=== PATIENT | female | born 1970 | race Caucasian/White ===

== ENCOUNTER 2019-05-16 10:32 | Outpatient (CLI) | payer MEDICAID, SELFPAY ==
--- NOTE | 2019-05-16 10:47 | XR_ITS ---
WS: [id number] LEFT KNEE: 3 VIEW(S) TECHNIQUE: AP, oblique(s) and lateral. HISTORY: LEFT KNEE JOINT PAIN COMPARISON: None available. No fracture or dislocation. No joint space narrowing or osteophytes. No joint effusion. No soft tissue abnormality. XR/XR knee LT 3V* [id number] IMPRESSION: Normal LEFT knee.
== END 2019-05-16 10:33 | disposition home or self-care (01) ==
LOC: RADWPI 10:35
PROVIDERS: Family Provider Internal Medicine; PCP Internal Medicine; Visit Provider Nurse Practitioner Family
DX: M25.562 Pain in left knee (principal)
CPT/HCPCS: 73562

== ENCOUNTER 2019-05-24 10:27 | Emergency (ER) | payer MEDICAID, SELFPAY ==
[2019-05-24 10:37] VITALS: BP 147/98; PULSE 72; RESP 16; TEMP 36.4; O2SAT 96; BMI 36.0
[2019-05-24 10:43] VITALS: RESP 16; O2SAT 97
--- NOTE | 2019-05-24 10:50 | ED_ITS ---
HPI - Extremity Problem General: Chief complaint: Extremity Injury, Lower Stated complaint: LEFT KNEE PAIN Time Seen by Provider: 05/24/19 10:39 History of Present Illness: HPI Narrative: Patient presents with chronic left knee pain been worsening. Did see her PCP last week he ordered x-ray x-ray results are available and show no bony problems. States knee hurts when she gets up hurts to move it at times is crutches periodically this pain is been going on for quite a while just worse last few days MD Complaint: extremity pain Onset (ago): month(s) Pain Consistency: intermittent Location: left and knee Severity scale (1-10): 5 Quality: aching Radiation: distal Relieving factors: immobilization Exacerbating factors: exertion Associated symptoms: Reports no associated symptoms; Deny chest pain, fever(s) or rash Review of Systems Const: Denies: fever, chills or body aches Eyes: Denies: change in vision or blurry vision ENMT: Denies: throat pain or nasal congestion Card: Denies: chest pain or shortness of breath on exertion Resp: Denies: shortness of breath, productive cough or non-productive cough GI: Denies: abdominal pain, nausea or vomiting Musc: Reports: joint pain (Left knee without swelling); Denies: extremity pain or joint swelling Skin/Breast: Denies: rash Neuro: Denies: headache Psych: Denies: anxiety or depression Alexys/Lymph: Denies: easy bruising PFSH ED PFSH: Social History Smoking and tobacco status: never smoked Physical Exam Const: COMMON NORMALS: no apparent distress, average body habitus and oriented x3 HENMT: COMMON NORMALS: normocephalic HEAD & SCALP: normal to inspection and normocephalic FACE & SINUS: normal facial exam Eye: COMMON NORMALS: conjunctivae normal GENERAL EYE: normal appearance of both eyes CONJUNCTIVA: Yes conjunctivae normal Neck/C-Spine: COMMON NORMALS: no JVD Chest: COMMONS NORMALS: inspection of chest normal Resp: COMMON NORMALS: normal respiratory effort and clear to auscultation bilaterally AUSCULTATION: clear to auscultation bilaterally Cardio: COMMON NORMALS: no JVD, regular rate and regular rhythm RATE: regular rate RHYTHM: regular rhythm GI: COMMON NORMALS: normal to inspection, nondistended, normoactive bowel sounds Extremity: COMMON NORMALS: normal to inspection and full ROM LEFT LOWER EXTREMITY: Yes knee joint (Has signs consistent with possible meniscus tear pain in the medial aspect meniscus line pain with hyperextension of the knee and the meniscus line) Neuro: COMMON NORMALS: oriented x3 Course Vital Signs: Vital signs: Vital Signs Temperature 97.5 F L 05/24/19 10:37 Pulse Rate 72 05/24/19 10:37 Respiratory Rate 16 05/24/19 10:43 Blood Pressure 147/98 05/24/19 10:37 Pulse Oximetry 97 05/24/19 10:43 Discharge Plan Discharge Patient Disposition: Home, Self-Care Clinical Impression: Knee pain, left Qualifiers: Chronicity: chronic Qualified Code(s): M25.562 - Pain in left knee Condition: Stable Prescriptions: New prednisone 10 mg tablet 10 mg PO DAILY Qty: 10 RF: 0 Discharge Orders: Discharge Order (Routine); Ordered 05/24/19 Ordered By: Lee Ward Referrals: TORRES GOMEZ DO [Primary Care Provider] - Barbra Bernard MD [Family Provider] - Discharge Diet: Advance as tolerated and Usual diet Discharge Activity: Increase activity as tolerated Patient Instructions: Knee Pain (ED) Activity Restrictions/Additional Instructions: Follow-up with medical provider as directed. Take medications as prescribed. Return to the ER or your medical provider if condition worsens. Please read and understand discharge instructions. If any questions ask please. Probable left meniscus tear. Follow-up with Valentin ELLIOTT for ordering of MRI. Coding Level of Care Code ED Dye Beck Reel Operator for Remi Joseph
[2019-05-24 10:58] VITALS: BP 127/96; PULSE 72; RESP 16; O2SAT 96
== END 2019-05-24 10:59 | disposition home or self-care (01) ==
LOC: ER 11:00
PROVIDERS: Emergency Provider Nurse Practitioner Family; Family Provider Internal Medicine; PCP Internal Medicine
DX: M25.562 Pain in left knee (principal)
CPT/HCPCS: 12345; 99282

== ENCOUNTER → 2019-06-17 10:06 | Outpatient (BNVA) | payer MEDICAID, SELFPAY | PROVIDERS: Family Provider Internal Medicine; PCP Internal Medicine; Referring Provider Nurse Practitioner Family; Visit Provider Orthopaedic Surgery | DX: M25.562 Pain in left knee (principal); M25.561 Pain in right knee | CPT/HCPCS: 73560; 73565 ==

== ENCOUNTER 2020-04-28 08:53 | Outpatient (CLI) | payer MEDICAID, SELFPAY ==
--- NOTE | 2020-04-28 08:58 | MM_ITS ---
WS: [id number] BILATERAL DIGITAL SCREENING MAMMOGRAPHY WITH CAD CLINICAL INFORMATION: SCREENING HISTORY: Screening mammogram. No current complaints. COMPARISON: TECHNIQUE: Bilateral CC and MLO views. FINDINGS: The breasts are composed of heterogeneous fibroglandular density tissue, which can limit the detectio n of small underlying mass lesions. Punctate and lucent center calcifications. Clustered calcificatio ns. Benign milk of calcium.No suspicious mass, asymmetry, calcifications, or architectural distortion . No evidence of malignancy. MM/[place] [id number] IMPRESSION: BI-RADS: 2-Benign FOLLOW UP: 1 Year Follow-up Recommend return to annual screening mammography.
== END 2020-04-28 08:54 | disposition home or self-care (01) ==
LOC: RADSHAW 08:55
PROVIDERS: PCP Nurse Practitioner Family; Visit Provider Nurse Practitioner Family
DX: Z12.31 Encounter for screening mammogram for malignant neoplasm of breast (principal)
CPT/HCPCS: 77067

== ENCOUNTER → 2020-09-23 11:07 | Outpatient (BNVA) | payer MEDICAID, SELFPAY | PROVIDERS: PCP Nurse Practitioner Family; Visit Provider Nurse Practitioner Family | DX: R05 Cough (principal) | CPT/HCPCS: 71046 ==

== ENCOUNTER 2020-09-24 12:48 | Outpatient (CLI) | payer MEDICAID, SELFPAY ==
--- NOTE | 2020-09-24 | CT_ITS ---
WS: [id number] CTA scan of the chest with IV contrast. Additional two-dimensional coronal and sagittal reconstructio n and MIP images was performed. 09/24/2020 Clinical Data: SOB/CHEST PAIN Comparison: CTA chest, 03/24/2014 DLP: 727.[address] scans at [facility] use at least one of these dose optimization techniques: automat ed exposure control; mA and/or kV adjustment per patient size (includes targeted exams where dose is matched to clinical indication); or iterative reconstruction. Findings: The central pulmonary arteries and peripheral pulmonary arteries fill normally with no evidence of in traluminal filling defects. No pulmonary embolic disease is noted. No nodules, masses or effusions are seen. The heart size is normal with no pericardial effusion. No p neumonia or pneumothorax is seen. The pulmonary vascularity is normal. The pulmonary arterial system and thoracic aorta demonstrate no abnormalities or dilatations. There is no axillary or significant m ediastinal adenopathy. The thyroid gland shows normal enhancement. The trachea bifurcates into the br onchi. The upper abdomen shows no abnormalities. The visualized liver, spleen, pancreas, gallbladder, adrena l glands and superior poles of the kidneys are not remarkable. The bones of the thoracic and upper lumbar spine are not remarkable. CT/CT angio chest PE protcl [id number] Impression: 1. Negative CTA of the chest with no evidence of pulmonary embolus. 2. Negative for acute cardiopulmonary disease.
[2020-09-24] MEDS: iohexol 350 mg/mL 100 mL Btl IV (13:14)
== END 2020-09-24 12:49 | disposition home or self-care (01) ==
PROVIDERS: PCP Nurse Practitioner Family; Visit Provider Nurse Practitioner Family
DX: Z86.711 Personal history of pulmonary embolism (principal); R06.00 Dyspnea, unspecified; R06.02 Shortness of breath; R07.9 Chest pain, unspecified
CPT/HCPCS: 71275; Q9967

== ENCOUNTER → 2020-10-12 13:59 | Outpatient (BNVA) | payer MEDICAID, SELFPAY | PROVIDERS: PCP Nurse Practitioner Family; Visit Provider Nurse Practitioner Family | DX: R06.00 Dyspnea, unspecified (principal) | CPT/HCPCS: 71046 ==

== ENCOUNTER 2020-10-13 20:00 | Outpatient (CLI) | payer MEDICAID, SELFPAY | END 2020-10-13 20:01 | disposition home or self-care (01) | LOC: SLEEP 10-14 08:46 | PROVIDERS: PCP Nurse Practitioner Family; Visit Provider Nurse Practitioner Family | DX: G47.33 Obstructive sleep apnea (adult) (pediatric) (principal) | CPT/HCPCS: 95810 ==

== ENCOUNTER 2020-12-03 11:42 | Outpatient (CLI) | payer MEDICAID, SELFPAY ==
[2020-12-03 12:05] VITALS: BMI 38.6
--- NOTE | 2020-12-03 12:05 | ECG_ITS ---
[facility] Test Date: 2020-12-03 Pat Name: Michelle Cui Department: Room: Gender: Female Firewall Administrator: : 1970 Requested By: Marilee Heath Order Number: [id number] Dung MD: AMBER SCHROEDER Interpretive Statements NAME OF STUDY: TREADMILL STRESS TEST INDICATION: Chest Pain, EXERCISE DATA: The patient was exercised by Trav protocol. Baseline heart rate was 86 beats per minute. Baseline blood pressure was 147/86 millimeters of mercury. Target heart rate was 169 beats per minute. Maximum heart rate achieved was 150, which was 88 % of the target heart rate. Maximum blood pressure was 236/80 millimeters of mercury. Total exercise time was 5 minutes 59 sec. Maximum METs achieved was 7.0, maximum VO2 was 24.5. The reason for ending the test was maximum effort achieved. The patient complained of shortness of breath during the stress test, which then resolved at the end of the test. ELECTROCARDIOGRAM: BASELINE: Sinus rhythm, normal axis, no significant ST-T changes at the baseline noted. EXERCISE: At the peak exercise level, no significant ST-T changes suggestive of ischemia noted. RECOVERY: During the recovery period, heart rate dropped appropriately. No significant ST-T changes in the recovery suggestive of ischemia noted. CONCLUSION: 1. Exercise capacity fair. 2. Heart rate response was appropriate. 3. Blood pressure response was hypertensive. 4. Symptoms not suggestive of ischemia. 5. Electrocardiogram portion of the stress test was not suggestive of ischemia. 6. Nuclear scan will be documented separately. Electronically Signed On 12-24-2020 18:53:43 TRANSPORT SPECIALIST by AMBER SCHROEDER [id number]
[2020-12-03 12:51] VITALS: BP 117/78; PULSE 92
== END 2020-12-03 11:43 | disposition home or self-care (01) ==
LOC: CDL 11:44
PROVIDERS: PCP Nurse Practitioner Family; Visit Provider Nurse Practitioner Family
DX: R07.9 Chest pain, unspecified (principal); R06.02 Shortness of breath
CPT/HCPCS: 93017

== ENCOUNTER 2021-02-03 10:55 | Outpatient (CLI) | payer MEDICAID, SELFPAY ==
[2021-02-03 13:10] VITALS: BP 146/92; PULSE 100; RESP 20; TEMP 37.2; O2SAT 96; BMI 37.8
[2021-02-03 13:45] VITALS: BP 137/90; PULSE 94; RESP 16; TEMP 37; O2SAT 96
[2021-02-03 14:48] VITALS: BP 128/83; PULSE 88; RESP 16; TEMP 36.6; O2SAT 97
== END 2021-02-03 10:56 | disposition home or self-care (01) ==
LOC: OPS 10:57
PROVIDERS: PCP Nurse Practitioner Family; Visit Provider Nurse Practitioner Family
DX: U07.1 COVID-19 (principal)
CPT/HCPCS: 96365

== ENCOUNTER 2021-03-04 08:48 | Outpatient (CLI) | payer MEDICAID, SELFPAY ==
--- NOTE | 2021-03-04 09:17 | USCV_ITS ---
Michelle Cui Age: 50 Gender: F : 1970 Exam Date: 03/04/2021 09:22 Ordering Phys: Marilee Heath PACKAGING TECH Technologist: LYNN Exam Location: [facility] [place] Indication: LEG PAIN / TINGLING HISTORY: LEG PAIN / TINGLING PROCEDURES: The venous duplex Doppler examination of both lower extremities was performed in the standard fashion. The following venous structures were evaluated: common femoral vein, profunda vein, proximal portion of the greater saphenous vein, superficial femoral vein, and the popliteal vein. In addition, the posterior tibial and peroneal trunk were evaluated. FINDINGS: Normal 2-D Doppler and augmentation and compressibility throughout the lower extremity venous structures. Additional imaging through the proximal calf veins also reveals no thrombus. Limited evaluation of the greater saphenous vein is patent with no thrombus. CONCLUSIONS No DVT bilateral lower extremities. Dr. Umm Machado DO (Electronically Signed) Final Date: 04 March 2021 10:40 S
== END 2021-03-04 08:49 | disposition home or self-care (01) ==
LOC: RAD 08:52
PROVIDERS: PCP Nurse Practitioner Family; Visit Provider Nurse Practitioner Family
DX: M79.604 Pain in right leg (principal); M79.605 Pain in left leg; R20.2 Paresthesia of skin; D68.51 Activated protein C resistance
CPT/HCPCS: 93970

== ENCOUNTER 2021-07-02 10:06 | Emergency (ER) | payer MEDICAID, SELFPAY ==
[2021-07-02 10:10] VITALS: BP 161/81; PULSE 85; RESP 14; TEMP 36.7; O2SAT 97; BMI 38.6
--- NOTE | 2021-07-02 10:26 | CTR_ITS ---
PROCEDURE INFORMATION: Exam: CT Head Without Contrast Exam date and time: 07/02/2021 11:00 AM Age: 51 years old Clinical indication: Other: Left eye drooping and numbness all over; Additional info: Symptoms of acute stroke TECHNIQUE: Imaging protocol: Computed tomography of the head without contrast. Radiation optimization: All CT scans at this facility use at least one of these dose optimization techniques: automated exposure control; mA and/or kV adjustment per patient size (includes targeted exams where dose is matched to clinical indication); or iterative reconstruction. COMPARISON: No relevant prior studies available. RADIATION DOSE METRICS: Total DLP (mGy-cm): 931.21 FINDINGS: Brain: No intracranial hemorrhage, edema or other acute abnormalities are seen in the brain. There is mild patchy decreased white matter density consistent with chronic small vessel white matter ischemia. There is no mass effect or midline shift. Cerebral ventricles: No ventriculomegaly. Paranasal sinuses: Visualized sinuses are unremarkable. No fluid levels. Mastoid air cells: Visualized mastoid air cells are well aerated. Bones/joints: Unremarkable. No acute fracture. Soft tissues: Unremarkable. CT/CT head wo con* [id number] IMPRESSION: No acute intracranial abnormality.
--- NOTE | 2021-07-02 10:26 | ECG_ITS ---
[facility] Test Date: 2021-07-02 Pat Name: Michelle Cui Department: Room: Gender: Female Hr Receptionist: : 1970 Requested By: Kieran Garcia Order Number: [id number] Dung MD: Andrew Randhawa M.D. Measurements Intervals [place] Rate: 71 P: 6 KS: 162 QRS: -4 QRSD: 86 T: 71 QT: 374 QTc: 409 Interpretive Statements SINUS RHYTHM NONSPECIFIC T-WAVE ABNORMALITY Compared to ECG 03/24/2014 17:15:01 Sinus tachycardia no longer present T-wave abnormality still present Electronically Signed On 07-03-2021 20:31:33 CDT by Andrew Randhawa M.D. [id number]
[2021-07-02] MEDS: ketorolac 30 mg/mL INJ 15 MG IVP (10:47)
[2021-07-02] MEDS: sodium chloride 0.9% 1,000 ML 999 ML IV (10:47)
[2021-07-02 10:48] LABS: Eosinophils # 0.3 10^3/uL (0.0-0.8); Eosinophils % 2.8 %; Neutrophils % 66.2 %; Nucleated Red Blood Cells % 0 %; Red Blood Count 4.89 10^6/uL (4.1-5.3); Red Cell Distribution Width 12.2 % (12.1-15.1)
[2021-07-02 11:01] LABS: Basophils # 0.1 10^3/uL (0.0-0.1); Basophils % 0.5 %; Hematocrit 43.7 % (37.0-47.0); Hemoglobin 15.1 g/dL (11.5-15.3); Lymphocytes # 2.3 10^3/uL (0.8-4.8); Lymphocytes % 22.6 %; Mean Corpuscular HGB Conc 34.6 g/dL (30.0-36.0); Mean Corpuscular Hemoglobin 30.9 pg (28.0-34.0); Mean Corpuscular Volume 89.4 fl (81-99); Mean Platelet Volume 9.1 fL (7.4-10.4); Monocytes # 0.7 10^3/uL (0.2-0.9); Monocytes % 7.4 %; Neutrophils # 6.64 10^3/uL (1.8-7.7); Platelet Count 397 10^3/cmm (130-400)
[2021-07-02 11:01] LABS: Glucose Point of Care 95 mg/dL (70-110)
[2021-07-02 11:05] LABS: INR 0.91 (0.8-1.2)
[2021-07-02 11:06] LABS: Partial Thromboplastin Time 28.8 SECONDS (23.9-36.7)
[2021-07-02 11:11] LABS: Alanine Aminotransferase 20 U/L (0-33); Albumin Level 4.5 g/dL (3.5-5.2); Alkaline Phosphatase 77 IU/L (35-105); Anion Gap 16.7 (5-19); Aspartate Amino Transferase 17 U/L (0-32); Blood Urea Nitrogen 10 mg/dL (6-20); Calcium 8.9 mg/dL (8.5-10.5); Carbon Dioxide 23 mmol/L (22-29); Chloride 103 mmol/L (98-107); Globulin 2.5 g/dL (1.3-4.6); Glomerular Filtration Rate 129.6 mL/min (90-130); Glucose 94 mg/dL (65-115); Osmolality Calculated 287 mOsm/kg (285-295); Potassium 3.7 mmol/L (3.5-5.1); Sodium 139 mmol/L (136-145); Total Bilirubin 0.3 mg/dL (0.15-1.2)
--- NOTE | 2021-07-02 11:19 | W.ED.NEUROSD ---
HPI - Neuro Symptoms/Deficit General: Chief Complaint: Neuro Symptoms/Deficit Stated Complaint: facial droop; numbness/tingling Time Seen by Provider: 07/02/21 10:19 History of Present Illness: Patient comes in with numbness, facial droop, and headache. States that she did not feel well then developed numbness all over, states that she is then developed some drooping of her right mouth, then started to have a headache. States that the numbness was all over her whole body. She currently still has the headache. Associated symptoms: Reports headache(s); Deny chest pain, nausea or vomiting Review of Systems Const: Denies: fever(s) or body aches Eyes: Denies: change in vision or blurry vision ENMT: Denies: throat pain or odynophagia Card: Denies: chest pain or palpitations Resp: Denies: dyspnea or productive cough GI: Denies: abdominal pain, nausea or vomiting : Denies: flank pain or dysuria Musc: Denies: neck pain or back pain Skin/Breast: Denies: rash or pruritus Neuro: Reports: headache(s) and numbness in extremities Psych: Denies: anxiety or change in appetite Endo: Denies: polyuria or excessive sweating PFSH ED PFSH: Social History Smoking and tobacco status: never smoked Physical Exam Const: COMMON NORMALS: no acute distress, patient oriented x3, healthy appearing and alert HENMT: COMMON NORMALS: normocephalic and atraumatic HEAD & SCALP: normocephalic and atraumatic Eye: COMMON NORMALS: Equal, round and reactive pupils present and EOMs intact bilaterally PUPIL: Yes Equal, round and reactive pupils present Neck/C-Spine: COMMON NORMALS: full ROM and supple Resp: COMMON NORMALS: normal respiratory effort, No retractions and No use of accessory muscles Cardio: COMMON NORMALS: regular rate and regular rhythm RATE: regular rate RHYTHM: regular rhythm GI: COMMON NORMALS: Normal to inspection, nondistended, normoactive bowel sounds present, Soft to palpation and non-tender PALPATION: Yes Soft to palpation Back/Pelvis: COMMON NORMALS: thoracic and lumbar spine normal to inspection and no thoracic nor lumbar tenderness Extremity: COMMON NORMALS: normal to inspection and full ROM Neuro: COMMON NORMALS: patient oriented x3 SENSORIUM/ORIENTATION: Yes alert OTHER: Mild drooping of the right side of the mouth, grossly normal neuro exam otherwise Psych: COMMON NORMALS: mental status grossly normal and cooperative Skin: COMMON NORMALS: no rashes or lesions noted and no wounds GENERAL SKIN EXAM: no rashes or lesions noted Course Vital Signs: Vital signs: Vital Signs Temperature 98.0 F 07/02/21 10:10 Pulse Rate 85 07/02/21 10:10 Respiratory Rate 14 07/02/21 10:10 Blood Pressure 161/81 07/02/21 10:10 Pulse Oximetry 97 07/02/21 10:10 MDM - Neuro Symptoms/Deficit Medical Decision Making ess all over, states that she is then developed some drooping of her right mouth, then started to have a headache. States that the numbness was all over her whole body. She currently still has the headache. On physical exam she has mild drooping of the right side of her mouth. Her neuro exam is otherwise grossly normal with no lateralizing symptoms. Strength is 5 out of 5 in all 4 extremities, sensation is intact throughout. Will check labs, CT, treat headache, and reassess. On reassessment I talked to results. She states her headache is gone and her symptoms are resolved. Will discharge home at this time with precautions return for worsening or changing symptoms. Lab Data : 07/02/21 10:30 07/02/21 10:[address] 07/02/21 10:26 IMPRESSION: No acute intracranial abnormality. Laboratory Results WBC 10.0 10^3/uL (4.0-10.0) 07/02/21 10:30 RBC 4.89 10^6/uL (4.1-5.3) 07/02/21 10:30 Hgb 15.1 g/dL (11.5-15.3) 07/02/21 10:30 Hct 43.7 % (37.0-47.0) 07/02/21 10:30 MCV 89.4 fl (81-99) 07/02/21 10:30 MCH 30.9 pg (28.0-34.0) 07/02/21 10:30 MCHC 34.6 g/dL (30.0-36.0) 07/02/21 10:30 RDW 12.2 % (12.1-15.1) 07/02/21 10:30 Plt Count 397 10^3/cmm (130-400) 07/02/21 10:30 MPV 9.1 fL (7.4-10.4) 07/02/21 10:30 Neut % (Auto) 66.2 % 07/02/21 10:30 Lymph % (Auto) 22.6 % 07/02/21 10:30 [place] % (Auto) 7.4 % 07/02/21 10:30 Eos % (Auto) 2.8 % 07/02/21 10:30 Baso % (Auto) 0.5 % 07/02/21 10:30 Neut # (Auto) 6.64 10^3/uL (1.8-7.7) 07/02/21 10:30 Lymph # (Auto) 2.3 10^3/uL (0.8-4.8) 07/02/21 10:30 [place]ie # (Auto) 0.7 10^3/uL (0.2-0.9) 07/02/21 10:30 Eos # (Auto) 0.3 10^3/uL (0.0-0.8) 07/02/21 10:30 Baso # (Auto) 0.1 10^3/uL (0.0-0.1) 07/02/21 10:30 Nucleated RBC % (auto) 0 % 07/02/21 10:30 Nucleated RBCs # 0.0 /100WBC 07/02/21 10:30 PT 12.50 SECONDS (12.1-14.9) 07/02/21 10:30 INR 0.91 (0.8-1.2) 07/02/21 10:30 APTT 28.8 SECONDS (23.9-36.7) 07/02/21 10:30 Sodium 139 mmol/L (136-145) 07/02/21 10:30 Potassium 3.7 mmol/L (3.5-5.1) 07/02/21 10:30 Chloride 103 mmol/L (98-107) 07/02/21 10:30 Carbon Dioxide 23 mmol/L (22-29) 07/02/21 10:30 Anion Gap 16.7 (5-19) 07/02/21 10:30 BUN 10 mg/dL (6-20) 07/02/21 10:30 Creatinine 0.5 mg/dL (0.5-0.9) 07/02/21 10:30 GFR Calculation 129.6 mL/min (90-130) 07/02/21 10:30 Glucose 94 mg/dL (65-115) 07/02/21 10:30 POC Glucose 95 mg/dL (70-110) 07/02/21 10:45 Calculated Osmolality 287 mOsm/kg (285-295) 07/02/21 10:30 Calcium 8.9 mg/dL (8.5-10.5) 07/02/21 10:30 Total Bilirubin 0.3 mg/dL (0.15-1.2) 07/02/21 10:30 AST 17 U/L (0-32) 07/02/21 10:30 ALT 20 U/L (0-33) 07/02/21 10:30 Alkaline Phosphatase 77 IU/L (35-105) 07/02/21 10:30 Total Protein 7.0 g/dL (6.6-8.7) 07/02/21 10:30 Albumin 4.5 g/dL (3.5-5.2) 07/02/21 10:30 Globulin 2.5 g/dL (1.3-4.6) 07/02/21 10:30 Urine Color Yellow (Yellow) 07/02/21 11:50 Urine Appearance Clear (CLEAR) 07/02/21 11:50 Urine pH 7 (5-7) 07/02/21 11:50 Ur Specific [place] 1.010 (1.005-1.030) 07/02/21 11:50 Urine Protein Neg (Negative) 07/02/21 11:50 Urine Glucose (UA) Norm (Normal) 07/02/21 11:50 Urine Ketones Negative (Negative) 07/02/21 11:50 Urine Blood Neg (Negative) 07/02/21 11:50 Urine Nitrate Negative (Negative) 07/02/21 11:50 Urine Bilirubin Neg (Negative) 07/02/21 11:50 Urine Urobilinogen Norm mg/dL (Negative) 07/02/21 11:50 Ur Leukocyte Esterase 1+ (Negative) H 07/02/21 11:50 Urine RBC None /hpf (0-2) 07/02/21 11:50 Urine WBC 5-10 /hpf (0-5) H 07/02/21 11:50 Ur Squamous Epith Cells 0-4 /hpf (0-5) H 07/02/21 11:50 Amorphous Sediment Not Reportable 07/02/21 11:50 Urine Bacteria Trace /hpf (NONE) 07/02/21 11:50 Urine Mucus 1+ /hpf 07/02/21 11:50 Urine Opiates Screen Negative ng/mL (Negative) 07/02/21 11:50 Ur Barbiturates Screen Negative ng/mL (Negative) 07/02/21 11:50 Ur Phencyclidine Scrn Negative ng/mL (Negative) 07/02/21 11:50 Ur Amphetamines Screen Negative ng/mL (Negative) 07/02/21 11:50 U Benzodiazepines Scrn Negative ng/mL (Negative) 07/02/21 11:50 Urine Cocaine Screen Negative ng/mL (Negative) 07/02/21 11:50 U Marijuana (THC) Screen Negative ng/mL (Negative) 07/02/21 11:50 Discharge Plan Discharge Patient Disposition: Home Clinical Impression: Headache Condition: Stable Prescriptions: No Action verapamil 120 mg capsule,ext rel. pellets 24 hr 120 mg PO DAILY 0RF venlafaxine 75 mg tablet 75 mg PO DAILY 0RF Tylenol 325 mg Capsule 325 mg PO QID PRN (Reason: Pain, Mild) 0RF prednisone 10 mg tablet 10 mg PO DAILY Qty: 10 0RF Discharge Orders: Discharge ED (Routine); Ordered 07/02/21 Ordered By: Kieran Garcia Referrals: Marilee Heath FNP [Primary Care Provider] - Coding Level of Care Code ED Grease Man for Chg Fwd Exam Comprehensive
[2021-07-02 12:17] LABS: Add Urine Microscopic? YES; Bilirubin Urine Neg (Negative); Blood Urine Neg (Negative); Glucose Urine UA Norm (Normal); Ketones Urine Negative (Negative); Leukocyte Esterase Urine 1+ (Negative); Nitrate Urine Negative (Negative); Protein Urine Neg (Negative); Urine Appearance Clear (CLEAR); Urine Color Yellow (Yellow); Urobilinogen Urine Norm (Negative); pH Urine 7 (5-7)
[2021-07-02 12:18] LABS: Amphetamines Screen Urine Negative (Negative); Bacteria Urine TRACE /hpf; Barbiturates Screen Urine Negative (Negative); Benzodiazepines Screen Urine Negative (Negative); Cocaine Screen Urine Negative (Negative); Mucus Urine 1+ /hpf; Opiate Screen Urine Negative (Negative); PCP Screen Urine Negative (Negative); Squamous Epithelial Cell Urine 0-4 /hpf (0-5); THC Screen Urine Negative (Negative)
[2021-07-02 12:19] LABS: Add Urine Culture? No
== END 2021-07-02 12:59 | disposition home or self-care (01) ==
PROVIDERS: Emergency Provider Emergency Medicine; PCP Nurse Practitioner Family
DX: R51.9 Headache, unspecified (principal)
CPT/HCPCS: 36416; 70450; 80053; 80306; 81001; 82962; 85025; 85610; 85730; 93005; 96374; 99284; J1885; J7030

== ENCOUNTER → 2021-08-09 10:33 | Outpatient (BNVA) | payer MEDICAID, SELFPAY | PROVIDERS: PCP Nurse Practitioner Family; Visit Provider Surgery | DX: Z12.11 Encounter for screening for malignant neoplasm of colon (principal) | CPT/HCPCS: 99024 ==

== ENCOUNTER 2021-08-26 10:40 | Outpatient (CLI) | payer MEDICAID, SELFPAY ==
--- NOTE | 2021-08-26 10:43 | MM_ITS ---
WS: [id number] BILATERAL SCREENING DIGITAL BREAST TOMOSYNTHESIS MAMMOGRAM WITH CAD HISTORY: SCREENING COMPARISON: 04/28/2020, 11/22/2018, 01/03/2016 Bilateral CC and MLO views with tomosynthesis and synthetic mammography submitted. Computer aided det ection analyzed. Breast composition: The breasts are extremely dense, which lowers the sensitivity of mammography. No suspicious masses, microcalcifications or architectural distortion. Diffuse bilateral scattered calci fications within each breast with mild progression over the past several years. There is no focal adriana uping of calcification that has changed or appears more significant than another. There is no distort ion. The very dense fibroglandular tissue makes evaluation for subtle changes difficult Note: Very dense fibroglandular tissue and numerous scattered calcifications. Self breast exams will be very important in this patient to evaluate for any change in thickening or nodularity. MM/[place] [id number] IMPRESSION: BI-RADS: 2-Benign FOLLOW UP: 1 Year Follow-up
== END 2021-08-26 10:41 | disposition home or self-care (01) ==
LOC: RAD 10:41
PROVIDERS: PCP Nurse Practitioner Family; Visit Provider Family Medicine
DX: Z12.31 Encounter for screening mammogram for malignant neoplasm of breast (principal)
CPT/HCPCS: 77063; 77067

== ENCOUNTER 2022-01-10 06:44 | Day surgery (SDC) | payer MEDICAID, SELFPAY ==
[2022-01-06 11:34] VITALS: BMI 37.8
--- NOTE | 2022-01-10 06:48 | W.PM.OPSFHP ---
Same Day Surgery H&P Indication for Procedure/HPI DATE OF PROCEDURE: January 10, 2022 CHIEF COMPLAINT/INDICATIONFOR SURGICAL PROCEDURE: Screening colonoscopy PREOP DIAGNOSIS: Screening colonoscopy PLANNED PROCEDURE: Operation Date: 01/10/22 08:00 Proposed Procedures p Colonoscopy [id number],Z12.11(Not Applicable) - Adalid Tamayo MD This is a pleasant 52 years old female patient with a history of no colon cancer or polyps, never had a colonoscopy before, patient comes today for screening colonoscopy. No bleeding per rectum. ROS All systems have been reviewed negative except as for the above or per problem list. Medications/Allergies* Home Medications Medication Instructions Recorded Confirmed Type venlafaxine 75 mg tablet 75 mg PO DAILY 06/17/19 01/06/22 History verapamil 120 mg 24 hr 120 mg PO DAILY 06/17/19 01/06/22 History capsule,extended release omeprazole 20 mg capsule,delayed 20 mg PO ONCE 08/09/21 01/06/22 History release Allergies/Adverse Reactions Allergy/AdvReac Type Severity Reaction Status Date / Time propranolol [From Inderal LA] Allergy Unknown Verified 01/10/22 08:15 Pertinent History/Comorbid Conditions* Social History Smoking and tobacco status: never smoked Pertinent Exam Findings alert, oriented x 3, clear to auscultation bilaterally, regular rate & rhythm and procedure specific exam findings (Abdominal exam nontender nondistended soft lower midline scar) Recommendations Surgery/Procedure today (Colonoscopy with possible biopsy) Other Plans: Plan of care; After thorough history and physical examination and reviewing the chart, plan to perform screening colonoscopy. I discussed with the patient in details the risks,benefits,alternatives and indications.The risk of aspiration, bleeding, soft tissue injury, perforation of the colon ,missed lesions and other potential concomitant complications were explained to the patient in details,also the potential need for Laproscoy/Laparotomy to repair any related complications including but not limited to colectomy and or Closotomy.The patient understood this well and did agree to proceed. Rationale was carefully and clearly discussed with the patient.Appropriate informed consent have been reviewed and signed All questions have been answered and all concerns have been addressed to patient's satisfaction. Verbal and written Instructions were given to the patient for colonoscopy prep Coding Level of Care Code Acute Roll Icer for smita Joseph
[2022-01-10 06:56] VITALS: BP 154/92; PULSE 84; RESP 18; TEMP 36.3; O2SAT 97
[2022-01-10 07:01] LABS: OR HCG Qualitative Urine Negative (Negative)
[2022-01-10] MEDS: sodium chloride 0.9% 1,000 ML 30 ML IV (07:05)
--- NOTE | 2022-01-10 07:58 | ANES.PREANE2 ---
Pre-Anesthetic Assessment Height/Weight: Height 1.63 m Weight 99.79 kg Temp Pulse Resp BP Pulse Ox O2 Del Method 97.3 F L 84 18 154/92 97 01/10/22 06:56 01/10/22 06:56 01/10/22 06:56 01/10/22 06:56 01/10/22 06:56 01/10/22 06:56 Preop Diagnosis: Screening colonoscopy Operation Date: 01/10/22 08:00 Proposed Procedures p Colonoscopy 31594,Z12.11(Not Applicable) - Adalid Tamayo MD Familial anesthetic complications: none Was Beta Michelle taken within 24 hours: N/A Was Clonidine taken within 24 hours: N/A Last intake: Intake Last Liquid Date 01/09/22 Last Liquid Time 19:00 Last Solid Date 01/08/22 Last Solid Time 18:00 Social No alcohol and No tobacco Exam alert, oriented x 3 and regular rate & rhythm Airway Submandibular: within normal limits Cervical ROM: within normal limits Mallampati: Class II Dentition: chipped CV/HEM Hypertension GI Gastroesophageal Reflux Disease Metabolic Morbid Obesity Neuropsych Anxiety and Depression Anesthetic Plan ASA status: 3 Anesthesia: MAC Medications/Allergies Home Medications Medication Instructions Recorded Confirmed Last Taken Type venlafaxine 75 mg tablet 75 mg PO DAILY 06/17/19 01/06/22 01/09/22 History verapamil 120 mg 24 hr 120 mg PO DAILY 06/17/19 01/06/22 01/09/22 History capsule,extended release omeprazole 20 mg capsule,delayed 20 mg PO ONCE 08/09/21 01/06/22 01/09/22 History release Allergies Allergy/AdvReac Type Severity Reaction Status Date / Time propranolol [From Inderal LA] Allergy Unknown Verified 01/06/22 11:31 Current Medications Generic Name Dose Route Start Last Admin Trade Name Freq PRN Reason Stop Dose Admin Sodium Chloride 1,000 mls @ 30 mls/hr 01/10/22 07:00 01/10/22 07:05 Sodium Chloride 0.9% IV 01/11/22 06:59 30 mls/hr .Q24H TIN Administration PFSH Anesthesia Social History Smoking and tobacco status: never smoked Data Anesthesia Cardiac Studies: No Data to Display
[2022-01-10 08:46] VITALS: BP 136/99; PULSE 81; RESP 18; TEMP 36.1; O2SAT 95
[2022-01-10 09:03] VITALS: BP 129/92; PULSE 84; RESP 18; O2SAT 99
--- NOTE | 2022-01-10 16:30 | ANE.PACU2 ---
Inpatient post-anesthesia follow up: Airway intact: Yes Vital signs: Temperature 97.0 F Pulse Rate 84 Respiratory Rate 18 Blood Pressure 129/92 Pulse Oximetry 99 Oxygen Delivery Me thod Room Air Oxygen Flow Rate Fraction of Inspir ed Oxygen Hydration adequate: Yes Nausea and vomiting: No Pain level: 2 Mental status: Baseline
== END 2022-01-10 09:09 | disposition home or self-care (01) ==
PROVIDERS: Anesthesiology; PCP Nurse Practitioner Family; Visit Provider Surgery
PROC: 0DJD8ZZ Inspection of Lower Intestinal Tract, Via Natural or Artificial Opening Endoscopic (ICD-10-PCS; CPT 45378; principal; 2022-01-10 08:00)
DX: Z12.11 Encounter for screening for malignant neoplasm of colon (principal); K57.30 Diverticulosis of large intestine without perforation or abscess without bleeding; I10 Essential (primary) hypertension; K21.9 Gastro-esophageal reflux disease without esophagitis; E66.01 Morbid (severe) obesity due to excess calories; Z68.37 Body mass index [BMI] 37.0-37.9, adult
CPT/HCPCS: 45378; 81025; 84703; J2704; J7030

== ENCOUNTER → 2022-03-09 10:02 | Outpatient (BNVA) | payer MEDICAID, SELFPAY | PROVIDERS: PCP Nurse Practitioner Family; Visit Provider Nurse Practitioner Women's Health | DX: N93.8 Other specified abnormal uterine and vaginal bleeding (principal) | CPT/HCPCS: 76830 ==

== ENCOUNTER → 2022-03-14 14:30 | Outpatient (BNVA) | payer MEDICAID, SELFPAY | PROVIDERS: PCP Nurse Practitioner Family; Visit Provider Nurse Practitioner Women's Health | DX: Z01.419 Encounter for gynecological examination (general) (routine) without abnormal findings (principal); N95.0 Postmenopausal bleeding | CPT/HCPCS: 87624; 88305 ==

== ENCOUNTER 2022-06-06 09:07 | Day surgery (SDC) | payer MEDICAID, SELFPAY ==
[2022-06-05 11:26] VITALS: BMI 38.4
[2022-06-06] VITALS (9 sets, daily range): BP systolic 139–186; BP diastolic 60–105; PULSE 76–98; RESP 14–18; TEMP 36.1–36.7; O2SAT 95–100
[2022-06-06 09:22] LABS: OR HCG Qualitative Urine Negative (Negative)
--- NOTE | 2022-06-06 09:36 | W.PM.OPSUD ---
Surgery/Procedure H&P Update DATE OF PROCEDURE: June 06, 2022 DATE H&P PERFORMED: 06/01/22 H&P UPDATE INFORMATION: I have reviewed H&P completed within last 30 days, I have examined patient prior to procedure and No changes to prior documentation PREOP DIAGNOSIS: AUB, thickened endometrium PLANNED PROCEDURE: Operation Date: 06/06/22 13:10 Proposed Procedures p Hysteroscopy, dilation and curettage with Myosure [id number], N93.9,R93.89(Not Applicable) - Eri Patel MD s Dilation And Curettage (D&C)(Not Applicable) - Eri Patel MD Related Problem List Diagnoses (1) Abnormal uterine bleeding (AUB): (2) Thickened endometrium:
[2022-06-06] MEDS: sodium chloride 0.9% 1,000 ML 30 ML IV (09:54)
--- NOTE | 2022-06-06 10:03 | ANES.PREANE2 ---
Pre-Anesthetic Assessment Height/Weight: Height 1.63 m Weight 101.605 kg Temp Pulse Resp BP Pulse Ox O2 Del Method 98.0 F 82 18 166/83 96 Room Air 06/06/22 09:24 06/06/22 09:24 06/06/22 09:24 06/06/22 09:24 06/06/22 09:24 06/06/22 09:25 Preop Diagnosis: AUB, thickened endometrium Operation Date: 06/06/22 13:10 Proposed Procedures p Hysteroscopy, dilation and curettage with Myosure [id number], N93.9,R93.89(Not Applicable) - Eri Patel MD s Dilation And Curettage (D&C)(Not Applicable) - Eri Patel MD Familial anesthetic complications: None Was Beta Michelle taken within 24 hours: N/A Was Clonidine taken within 24 hours: N/A Last intake: Intake Last Liquid Date 06/05/22 Last Liquid Time 18:00 Last Solid Date 06/05/22 Last Solid Time 18:00 Social No alcohol and No tobacco Exam alert, oriented x 3, clear to auscultation bilaterally and regular rate & rhythm Airway Mallampati: Class II Dentition: chipped GI Gastroesophageal Reflux Disease Metabolic Morbid Obesity Anesthetic Plan ASA status: 2 Anesthesia: General Risk of > 500 ml blood loss (7ml/kg in children): No Medications/Allergies Home Medications Medication Instructions Recorded Confirmed Last Taken Type venlafaxine 75 mg tablet 75 mg PO DAILY 06/17/19 06/05/22 06/05/22 History verapamil 120 mg 24 hr 120 mg PO DAILY 06/17/19 06/05/22 06/05/22 History capsule,extended release omeprazole 20 mg capsule,delayed 20 mg PO ONCE 08/09/21 06/06/22 01/09/22 History release Allergies Allergy/AdvReac Type Severity Reaction Status Date / Time propranolol [From Inderal LA] Allergy Unknown Verified 06/06/22 09:26 Current Medications Generic Name Dose Route Start Last Admin Trade Name Freq PRN Reason Stop Dose Admin Sodium Chloride 1,000 mls @ 30 mls/hr 06/06/22 09:15 06/06/22 09:54 Sodium Chloride 0.9% IV 06/07/22 09:14 30 mls/hr .Q24H TIN Administration PFSH Anesthesia Medical History Factor 5 Leiden mutation, heterozygous Mitral valve prolapse Surgical History deliv NOS-unsp Family History Other Colon cancer Denies family history of Ovarian cancer Diabetes Breast cancer Suicide Cancer Hypertension Uterine cancer Thyroid disease Social History Smoking and tobacco status: never smoked Data Anesthesia Cardiac Studies: No Data to Display
[2022-06-06] MEDS: ceFAZolin 2,000 MG in sodium chloride 0.9% (plus) 50 ML 100 MG IV (11:30)
--- NOTE | 2022-06-06 12:28 | PM.OP ---
Operative Report Date of procedure: June 06, 2022 Pre-op diagnosis: Preop Diagnosis AUB, thickened endometrium Post-op diagnosis: same Post-op findings: 10 week sized uterus. excessive tissue Procedure done: hysteroscopy, D&C, myosure Specimens removed/disposition: enodmetrial curettings to pathology Surgeon: Eri Patel Estimated blood loss (mL): 5 IV fluids (mL): 800 Complications: none Findings: 1000 ml of hysteroscopy deficit Condition: stable Disposition: PACU Procedure: The patient was taken to the operating room where monitored anesthesia was administered and to be adequate. She was prepped and draped in the normal sterile fashion in the dorsal lithotomy position in [facility]. A weighted speculum was placed into the vagina and the anterior lip of the cervix grasped with a single-tooth tenaculum. The uterus was sounded to 10 cm. The cervix was dilated to 18 Yi. The hysteroscope was advanced into the endometrial cavity. There was excessive tissue and polyps visualized. There were several endocervical polyps present, as well. The MyoSure device was activated and the tissue was removed. Pictures were taken pre and post procedure. A sharp curettage was performed on the endocervis to remove the polyps. All instruments were removed. The patient tolerated the procedure well. Sponge lap and needle counts were correct x3. She was taken to the recovery room in stable condition.
--- NOTE | 2022-06-06 12:33 | PM.DCS ---
Discharge Providers Date of Admission: 06/06/22 Date of Discharge: June 06, 2022 Attending Provider at Admission: Dr. Patel Attending Provider at Discharge: Eri Patel MD Primary Care Provider: Marilee Heath Diagnoses at Discharge Discharge Diagnosis (1) Abnormal uterine bleeding (AUB): Status: Acute (2) Thickened endometrium: Status: Acute Reason for Visit Reason for Visit: N93.9, R93.89 Hospital Course Hospital Course The patient was admitted for surgery. She did well postoperatively and was ready for discharge. Discharge Data Studies Completed and Pending Pending at discharge Category Date Time Status Pathology: Surgical [PTH] Routine Pth 06/06/22 12:25 Ordered Laboratory Results Urine HCG, Qual Negative (Negative) 06/06/22 09:20 Vitals Last Vital Signs Temp 97.6 F 06/06/22 12:27 Pulse 84 06/06/22 12:32 Resp 18 06/06/22 12:32 BP 152/83 06/06/22 12:32 Pulse Ox 100 06/06/22 12:32 O2 Del Method Simple Mask 06/06/22 12:32 O2 Flow Rate 6 06/06/22 12:32 Discharge Plan Discharge Patient Disposition: Home Condition: Stable Prescriptions: Continued verapamil 120 mg capsule,ext rel. pellets 24 hr 120 mg PO DAILY venlafaxine 75 mg tablet 75 mg PO DAILY omeprazole 20 mg capsule,delayed release(DR/EC) 20 mg PO ONCE Discharge Orders: Discharge Order (Routine); Ordered 06/06/22 Ordered By: Eri Patel Discharge Attestations Time Spent in Discharge Care*: less than 30 min Quality Metrics Clinical Quality Measures [ No reported AMI, CVA or VTE this stay] Coding Level of Care Code Acute Code for Chg Fwd Diagnoses Abnormal uterine bleeding (AUB) N93.9 Thickened endometrium R93.89
--- NOTE | 2022-06-06 13:58 | ANE.PACU2 ---
Inpatient post-anesthesia follow up: Airway intact: Yes Vital signs: Temperature 97.0 F Pulse Rate 79 Respiratory Rate 18 Blood Pressure 139/105 Pulse Oximetry 95 Oxygen Delivery Me thod Room Air Oxygen Flow Rate 6 Fraction of Inspir ed Oxygen Hydration adequate: Yes Nausea and vomiting: No Pain level: 1 Mental status: Baseline
== END 2022-06-06 13:30 | disposition home or self-care (01) ==
PROVIDERS: Anesthesiology; PCP Nurse Practitioner Family; Visit Provider Obstetrics & Gynecology
PROC: 0UDB8ZZ Extraction of Endometrium, Via Natural or Artificial Opening Endoscopic (ICD-10-PCS; CPT 58558; principal; 2022-06-06 13:10)
PROC: (CPT 58120; 2022-06-06 13:10)
DX: N85.01 Benign endometrial hyperplasia (principal); N93.9 Abnormal uterine and vaginal bleeding, unspecified; K21.9 Gastro-esophageal reflux disease without esophagitis; D68.51 Activated protein C resistance; E66.01 Morbid (severe) obesity due to excess calories; Z68.38 Body mass index [BMI] 38.0-38.9, adult; Z79.899 Other long term (current) drug therapy
CPT/HCPCS: 58558; 84703; 88305; J0690; J1100; J1885; J2250; J2405; J2704; J3010; J7030

== ENCOUNTER → 2022-12-20 11:03 | Outpatient (BNVA) | payer MEDICAID, SELFPAY | PROVIDERS: PCP Nurse Practitioner Family; Visit Provider Nurse Practitioner Women's Health | DX: R93.89 Abnormal findings on diagnostic imaging of other specified body structures (principal) | CPT/HCPCS: 76830 ==

== ENCOUNTER 2023-01-05 10:51 | Outpatient (CLI) | payer MEDICAID, SELFPAY ==
[2023-01-05 11:19] LABS: Basophils # 0.1 10^3/uL (0.0-0.1); Basophils % 0.7 %; Eosinophils # 0.2 10^3/uL (0.0-0.8); Eosinophils % 2.1 %; Hematocrit 39.5 % (36-47); Lymphocytes # 2.3 10^3/uL (0.8-4.8); Lymphocytes % 27.1 %; Mean Corpuscular HGB Conc 33.2 g/dL (30-55); Mean Corpuscular Hemoglobin 28.9 pg (27-33); Mean Platelet Volume 8.8 fL (7.4-10.4); Monocytes # 0.8 10^3/uL (0.2-0.9); Monocytes % 8.9 %; Neutrophils # 5.24 10^3/uL (1.8-7.7); Neutrophils % 60.9 %; Nucleated Red Blood Cells % 0 %; Platelet Count 433 10^3/cmm (157-399); Red Blood Count 4.54 10^6/uL (3.85-5.65); Red Cell Distribution Width 13.7 % (12.1-15.1); White Blood Count 8.62 10^3/uL (3.29-11.43)
[2023-01-05 12:11] LABS: Folate Level 8.1 ng/mL (4.8-37.3); Free T4 Free Thyroxine 1.07 ng/dL (0.82-1.77); Thyroid Stimulating Hormone 0.61 uIU/mL (0.27-4.20)
[2023-01-05 12:27] LABS: Ferritin 18 ng/mL (15-150)
[2023-01-05 12:43] LABS: 25 Hydroxy Vitamin D 17 ng/mL (30-100)
[2023-01-09 13:45] LABS: Zinc Level, Serum or Plasma 60 mcg/dL (60-130)
== END 2023-01-05 10:52 | disposition home or self-care (01) ==
LOC: LAB 10:54
PROVIDERS: PCP Nurse Practitioner Family; Visit Provider Nurse Practitioner Family
DX: L65.0 Telogen effluvium (principal)
CPT/HCPCS: 36415; 82306; 82728; 82746; 84439; 84443; 84630; 85025

== ENCOUNTER 2023-07-04 11:38 | Outpatient (CLI) | payer MEDICAID, SELFPAY | END 2023-07-04 11:39 | disposition home or self-care (01) | LOC: LAB 11:39 | PROVIDERS: PCP Nurse Practitioner Family; Visit Provider Obstetrics & Gynecology | DX: Z01.812 Encounter for preprocedural laboratory examination (principal) | CPT/HCPCS: 80053; 81003; 85025 ==

== ENCOUNTER 2024-04-07 10:25 | Outpatient (CLI) | payer BC, SELFPAY ==
--- NOTE | 2024-04-07 10:35 | MM_ITS ---
WS: [id number] BILATERAL SCREENING DIGITAL TOMOSYNTHESIS MAMMOGRAM WITH CAD HISTORY: SCREENING COMPARISON: 08/26/2021, 04/28/2020 Bilateral CC and MLO views with tomosynthesis and synthetic mammography submitted. Computer aided detection analyzed. Breast composition: The breasts are extremely dense, which lowers the sensitivity of mammography. No suspicious masses, microcalcifications or architectural distortion. Numerous bilateral scattered calcifications within each breast. MM/MM scr tomosynthesis [id number] IMPRESSION: BI-RADS: 2 - Benign FOLLOW UP: 1 Year Follow-up
== END 2024-04-07 10:26 | disposition home or self-care (01) ==
PROVIDERS: PCP Nurse Practitioner Family; Visit Provider Nurse Practitioner Family
DX: Z12.31 Encounter for screening mammogram for malignant neoplasm of breast (principal); R92.343 Mammographic extreme density, bilateral breasts; R92.1 Mammographic calcification found on diagnostic imaging of breast
CPT/HCPCS: 77063; 77067

== ENCOUNTER 2024-10-31 09:49 | Emergency (ER) | payer BC, SELFPAY ==
--- NOTE | 2024-10-31 09:53 | XR_ITS ---
WS: [id number] Exam: XR knee LT 3V* [id number] Date/Time of Exam: 10/31/2024 10:38 AM Reason For Exam: pain Comparison 06/17/2019. No fracture. The joint compartments are preserved. No joint effusion. Normal soft tissues. XR/XR knee LT 3V* [id number] IMPRESSION: 1. Negative LEFT knee.
--- OUTSIDE RECORDS SUMMARY | 2024-10-31 09:56 | XMS_ITS | Clinical Summary ---
Author Organization [facility] Address [address] [place]: Epic Prelude ADT EZEQUIEL HARRISON [id number] Care Team Providers Care Alligator Hunter Name Role Phone Unavailable Primary Care Provider Unavailabl e Allergies Active Allergy Reactions Criticality Noted Date Comments Propranolol Bradycardia Medium 07/01/2024 Medications cpap medical claims examiner ResMed CPAP @ 9 cwp with heated humidifier. Length of need:99 months; per patient comfort mask with headgear every 6 months; mask only every 3 months; as needed cushions per month; Tubing heated 1 every 3 months, water chamber 1 every 6 months, chin strap 1 every 6 months, filters disposable 2 per month, filters reusable 1 per 6 months. Efficacy data download feature and mask fitting. 1 Each 1 Active venlafaxine (EFFEXOR XR) 75 mg Extended Release 24 hour capsule Take 1 Capsule by mouth daily. 5 Active verapamiL (VERELAN) 120 mg Sustained Release 24 hour capsule Take 1 Capsule by mouth daily. 5 Active Active Problems No known active problems Encounters Date Type Department Care Team Description 10/21/2024 External Device Data [facility] ABSTRACTION Provider, Abstract 10/14/2024 External Device Data [facility] ABSTRACTION Provider, Abstract 09/09/2024 External Device Data [facility] ABSTRACTION Provider, Abstract 08/20/2024 External Device Data [facility] ABSTRACTION Provider, Abstract 08/19/2024 External Device Data [facility] ABSTRACTION Provider, Abstract 08/11/2024 Results Follow-Up [facility] Snajay Dukes [place] [address] [id number] Bienvenido Fernández MD POC , URINE, PATHOLOGY 08/06/2024 10:30 AM CDT Procedure visit [facility] Sanjay Dukes [place] [address] [place] [address] Bienvenido Fernández MD Encounter for test with result negative (Primary Dx); Endometrial thickening on ultrasound from Last 3 Months Family History Medical History Relation Name Comments Breast Cancer Neg Hx Ovarian Cancer Neg Hx Social History Tobacco Use Types Packs/Day Years Used Date Smoking Tobacco: Former Cigarettes Passive Smoke Exposure: Past Tobacco Cessation:Counseling Given: Not Answered Alcohol Use Standard Drinks/Week Comments Not Currently 0 (1 standard drink = 0.6 oz pur e alcohol) Comments No Sex and Gender Information Value Date Recorded Sex Assigned at Not on file 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 Gender Identity Not on file Sexual Orientation Not on file Last Filed Vital Signs Vital Sign Reading Time Taken Comments Blood Pressure 122/90 08/06/2024 9:57 AM CDT Pulse - - Temperature - - Respiratory Rate - - Oxygen Saturation - - Inhaled Oxygen Concentration - - Weight 101.4 kg (223 lb 9.6 oz) 08/06/2024 9:57 AM CDT Height 162.6 cm (5' 4 ) 08/06/2024 9:57 AM CDT Body Mass Index 38.38 08/06/2024 9:57 AM CDT Plan of Treatment Health Maintenance Due Date Last Done Comments Pre-Diabetes and Diabetes Screening 1969 DTAP/TDAP/TD VACCINES (1 - Tdap) 1988 HEPATITIS B VACCINES (1 of 3 - 19+ 3-dose series) 04/1988 HPV/Cotest (21-29) 1990 CERVICAL CANCER SCREENING 1999 HPV/Cotest (30-65) 1999 PAP SMEAR 1999 BREAST CANCER SCREENING 2009 COLORECTAL SCREENING 2014 Colorectal Cancer Screening 2014 FIT-DNA Q 3 years 2014 FIT/FOBT Q 1 year 2014 Flex Sig/CT Colonography Q 5 years 2014 ZOSTER VACCINE (1 of 2) 2019 INFLUENZA VACCINE (#1) 2024 Procedures Procedure Name Priority Date/Time Associated Diagnosis Comments WA ENDOMETRIAL BX W/WO ENDOCERVIX BX W/O DILAT SPX Routine 08/06/2024 10:30 AM CDT Endometrial thickening on ultrasound POC , URINE Routine 08/06/2024 9:50 AM CDT Encounter for test with result negative PATHOLOGY Routine 08/06/2024 8:00 AM CDT Endometrial thickening on ultrasound from Last 3 Months Results * WA ENDOMETRIAL BX W/WO ENDOCERVIX BX W/O DILAT SPX (08/06/2024 10:30 AM CDT) Narrative [facility] [place] [facility] - 08/06/2024 10:30 AM CDT Bienvenido Fernández MD 08/06/2024 10:39 AM Endometrial Biopsy Date/Time: 08/06/2024 10:30 AM Performed by: Bienvenido Fernández MD Authorized by: Bienvenido Fernández MD Consent: Consent obtained: written Consent given by: patient Risks discussed: bleeding and infection Indications: Indications: thickened endometrium Pre-procedure: Urine test: negative Procedure: Tenaculum used: no A local block was performed: no Cervix dilated: no Number of passes: 3 Findings: Cervix: normal Specimen collected: specimen collected and sent to pathology Bienvenido Fernández MD PROCEDURE/MINOR SURGICAL ORDERAB LES Final Result [facility] SANCHE[facility] CLIA# [id number] [address] [place] [id number] * POC , URINE (08/06/2024 9:50 AM CDT) HCG QUAL URINE POC Negative Negative, Indeterminate [facility] [place] [employer] [facility] INTERNAL KIT QC POC Pass Pass [facility] [employer] [facility] KIT LOT NUMBER POC [id number] [facility] [place] [employer] [facility] KIT EXP DATE POC 07/03/2025 [facility] [employer] [facility] Urine 08/06/2024 9:50 AM CDT us Bienvenido Fernández MD POINT OF CARE TESTING Final Resu lt [facility] SANCHEZ CLIA# [id number] [address] [place] [id number] * PATHOLOGY (08/06/2024 8:00 AM CDT) CASE REPORT Surgical Pathology Report Case: [id number] Authorizing Provider: Bienvenido Fernández MD Collected: 08/06/2024 08:00 AM Ordering Location: [facility] Received: 08/06/2024 01:35 PM Ernst Sanchez Pathologist: Fawn Roy MD Specimen: Endometrium 1:00 PM CDT [facility] FINAL DIAGNOSIS A. Uterus, endometrium, biopsy - Disordered proliferative endometrium with tubal metaplasia - No evidence of hyperplasia or malignancy Fawn Roy MD [id number] 1:00 PM CDT [facility] at 1259 CDT GROSS DESCRIPTION A. Received in a container of formalin labeled See -endometrium are multiple dark-red soft tissue fragments, 2.5 x 1.8 x 0.4 cm in aggregate. The specimen is submitted entirely in A1. Josette Doll 5 1:00 PM CDT [facility] CLINICAL INFORMATION R93.89 - Endometrial thickening on ultrasound [ICD-10-CM] 1:00 PM CDT [facility] COMMENT The [employer]year[employer] voice-activated dictation system may have been used in the creation of this report. Inherent to this system is the possibility of errors in syntax, grammar, punctuation, or other areas that could impact interpretation. If there are interpretive questions about the report, please contact the performing pathologist. Unless gross only is specified in the diagnosis, the microscopic examination substantiates the above cited diagnosis. The performance characteristics of all immunohistochemical stains cited in this report (if any) were determined by the [facility] in compliance with CLIA'88 regulations. Some of these tests rely on the use of analyte specific reagents and are subject to specific labeling requirements by the FDA. All controls show appropriate reactivity. This testing was developed by the [facility]. It has not been cleared or approved by the FDA. The FDA has determined that such clearance or approval is not necessary. 1:00 PM CDT [facility] Tissue ENDOMETRIAL STRUCTURE / Unknown 08/06/2024 8:00 AM CDT 08/06/2024 1:35 PM CDT us Bienvenido Fernández MD PATHOLOGY/CYTOLOGY ORDERABLES Fi nal Result [facility] CLIA # [id number] [address] [address] from Last 3 Months Insurance BCBS BLUE ACCESS/TRUE BLUE PPO
[2024-10-31 10:25] VITALS: BP 159/90; PULSE 72; RESP 17; TEMP 36.6; O2SAT 97; BMI 37.8
--- NOTE | 2024-10-31 10:27 | W.ED.EXTPRO ---
HPI - Extremity Problem General: Chief complaint: Extremity Problem,Nontraumatic Stated complaint: L knee Pain Time Seen by Provider: 10/31/24 09:53 Source: patient Mode of arrival: ambulatory Limitations: no limitations History of Present Illness: Patient is a 54-year-old female who presents to ED today with a complaint of left knee pain. She states pain has been present over the past 2 weeks or so. No known injury or trauma. She was recently seen at a walk-in clinic with recommendations for conservative therapy. Patient states about 8 years ago she was diagnosed with a small tear somewhere in her knee. No history of OA/RA. She states she has not noticed any redness or warmth to the joint. No leg edema or calf pain. MD Complaint: joint pain Onset (ago): week(s) Pain Consistency: constant Location: left and knee Radiation: none Relieving factors: immobilization Exacerbating factors: weight bearing Associated symptoms: Reports no associated symptoms; Deny chest pain Related Data Home Medications ?Medication ?Instructions ?Recorded ?Confirmed venlafaxine 75 mg tablet 75 mg PO DAILY 06/17/19 10/28/24 verapamil 120 mg 24 hr 120 mg PO DAILY 06/17/19 10/28/24 capsule,extended release omeprazole 20 mg capsule,delayed 20 mg PO ONCE 08/09/21 10/28/24 release Previous Rx's ?Medication ?Instructions ?Recorded methylprednisolone 4 mg tablets in See Rx Instructions PO .COMPLEX 10/31/24 a dose pack (Medrol (Sameer)) #21 ea Allergies Allergy/AdvReac Type Severity Reaction Status Date / Time propranolol (From Inderal LA) Allergy Unknown Verified 10/28/24 10:04 Review of Systems Card: Denies: chest pain Resp: Denies: dyspnea Musc: Reports: joint pain (L knee) and joint swelling (L knee); Denies: joint redness, joint warmth or muscle weakness Neuro: Denies: numbness in extremities, weakness in extremities or sensory changes PFS ED PFSH: Medical History Abnormal uterine bleeding (AUB) Thickened endometrium Mitral valve prolapse Factor 5 Leiden mutation, heterozygous Surgical History deliv NOS-unsp Family History Other Colon cancer Denies family history of Ovarian cancer Diabetes Breast cancer Suicide Cancer Hypertension Uterine cancer Thyroid disease Social History Smoking and tobacco/nicotine status: never used tobacco/nicotine Physical Exam Const: COMMON NORMALS: no acute distress, patient oriented x3, no limitations, alert and well nourished GENERAL APPEARANCE: cooperative NUTRITIONAL APPEARANCE: obese (BMI 37.8) ORIENTATION/CONSCIOUSNESS: Yes awake, Yes oriented to person, Yes oriented to place and Yes oriented to time Resp: COMMON NORMALS: normal respiratory effort and clear to auscultation bilaterally AUSCULTATION: clear to auscultation bilaterally Cardio: COMMON NORMALS: regular rate and regular rhythm RATE: regular rate RHYTHM: regular rhythm Extremity: COMMON NORMALS: normal to inspection, full ROM, capillary refill normal, no clubbing, cyanosis or edema, no calf tenderness and no pedal edema GENERAL: Yes normal exam except as noted LEFT LOWER EXTREMITY: Yes knee joint (TTP medial joint line) Left knee: Yes inspection (normal gross inspection), Yes ROM (fairly normal passive ROM; no obvious joint laxity) and Yes neurovascular exam (normal) Neuro: COMMON NORMALS: patient oriented x3, moves all extremities, no focal motor deficits, no sensory deficits noted and gait normal SENSORIUM/ORIENTATION: Yes alert, Yes oriented to person, Yes oriented to place and Yes oriented to time Skin: COMMON NORMALS: no rashes or lesions noted GENERAL SKIN EXAM: no rashes or lesions noted Course Vital Signs: Vital signs: Vital Signs Temperature 97.8 F 10/31/24 10:25 Pulse Rate 72 10/31/24 10:25 Respiratory Rate 17 10/31/24 10:25 Blood Pressure 159/90 10/31/24 10:25 Pulse Oximetry 97 10/31/24 10:25 Oxygen Delivery Me thod Room Air 10/31/24 10:25 MDM - Extremity (Nontraumatic) Medical Decision Making XR of the left knee negative for acute injury. She is requesting referral to orthopedics which will be placed. She has been taking anti-inflammatory and home so recommendations to continue this. She has an MARY ANNE wrap. Declined crutches. Will RX steroids. Recommend continued ice/elevation. Medical Records I reviewed the patient's medical records. XR interpretation done by ED provider, pending radiology final review Discharge Plan Discharge Patient Disposition: Home Clinical Impression: Acute pain of left knee Condition: Stable Prescriptions: New methylprednisolone [Medrol (Sameer)] 4 mg tablets,dose pack See Rx Instructions .ROUTE .COMPLEX Qty: 21 0RF Rx Instructions: orally per package directions No Action verapamil 120 mg capsule,ext rel. pellets 24 hr 120 mg PO DAILY venlafaxine 75 mg tablet 75 mg PO DAILY omeprazole 20 mg capsule,delayed release(DR/EC) 20 mg PO ONCE Discharge Orders: Discharge ED (Routine); Ordered 10/31/24 Ordered By: Nikki Jonas Referrals: Marilee Heath FNP [Primary Care Provider, Family Practice] Patient Instructions: Patient Portal & Mino Instructions Activity Restrictions/Additional Instructions: As we discussed, you may continue to wrap your knee using your MARY ANNE wrap, continue anti-inflammatories at home as needed for discomfort as well as ice and elevation. Will place you on steroids. I did place a case management referral for orthopedics for further evaluation/treatment of your knee pain. Print Language: Gambian Coding Level of Care Code ED Sales Analytics Manager for Remi Joseph
[2024-10-31 11:15] VITALS: BP 156/87; PULSE 75; O2SAT 98
--- NOTE | 2024-10-31 12:19 | DCPLANNER ---
messaged ortho for er f/u
== END 2024-10-31 11:16 | disposition home or self-care (01) ==
PROVIDERS: Emergency Provider Physician Assistant; PCP Nurse Practitioner Family
DX: M25.562 Pain in left knee (principal)
CPT/HCPCS: 73562; 99283

== ENCOUNTER → 2024-11-11 15:24 | Outpatient (BNVA) | payer BC, SELFPAY | PROVIDERS: PCP Nurse Practitioner Family; Visit Provider Orthopaedic Surgery | DX: S86.912A Strain of unspecified muscle(s) and tendon(s) at lower leg level, left leg, initial encounter (principal); X58.XXXA Exposure to other specified factors, initial encounter | CPT/HCPCS: 73560; 73565 ==

== ENCOUNTER 2024-12-01 10:09 | Outpatient (RCR) | payer BC, SELFPAY | END 2024-12-05 23:59 | disposition home or self-care (01) | LOC: TPT 10:09 | PROVIDERS: PCP Nurse Practitioner Family; Visit Provider Orthopaedic Surgery | DX: M25.562 Pain in left knee (principal) | CPT/HCPCS: 97110; 97161 ==

== ENCOUNTER 2024-12-03 13:12 | Outpatient (CLI) | payer BC, SELFPAY ==
--- NOTE | 2024-12-03 13:45 | MR_ITS ---
WS: [id number] MRI LEFT KNEE NONCONTRAST TECHNIQUE: Axial PD, coronal PD fat sat, coronal PD, sagittal PD, and sagittal PD fat-sat images obtained. CLINICAL INFORMATION: M25.562 - Pain in left knee COMPARISON: MRI 2006 FINDINGS: Moderate tricompartment arthritis advanced for patient this age. This is progressed since 2006. Distal quadriceps and patella tendons are intact. Hypertrophic patella. Small suprapatellar effusion. Grade IV chondromalacia patella with subchondral edema. Prepatellar soft tissue edema. Medial and latera l patellar retinacula appear intact. Diffuse edema involving the anterior medial femoral condyle. Recommend correlation for recent trauma. No visualized fracture lines. Surrounding soft tissue edema in this location. Fluid and edema along the deep and superficial fibers of the medial collateral ligament which appears intact. Lateral colla teral ligament appears intact. Increased T2 signal involving the mid and distal ACL fibers. Recommend correlation for partial tear. PCL is intact. Chronic thinning of the medial meniscus. Tear involving the posterior horn medial meniscus extending to the articular surface. Mild peripheral extrusion of the medial meniscus. Lateral meniscus appears intact. Suspected capsular avulsion involving the lateral meniscus. Small amount of increased signal suspicious for partial tear involving the popliteus. Small amount of edema at the fibular head. LCL appears intact. Recommend correlation for posterolateral corner injury. MR/MR knee LT wo con* [id number] IMPRESSION: 1. Moderate arthritis advanced for a patient this age. 2. Small amount of increased signal involving the mid and distal fibers of the ACL suspicious for partial tear. 3. Diffuse contusion involving the medial femoral condyle. No visualized fract ure lines. Advanced chondromalacia in the medial joint compartment. Recommend c orrelation for recent injury. 4. Suspected lateral capsular avulsion at the posterior horn. Recommend correl ation for posterolateral corner injury. 5. Small tear involving the posterior horn medial meniscus extending to the ar ticular surface with blunting of the posterior horn and meniscal root. Peripher al extrusion of the medial meniscus. 6. Grade IV chondromalacia patella Outbridge grading: grade IV: full-thickness cartilage loss with underlying bone reactive changes
== END 2024-12-03 13:13 | disposition home or self-care (01) ==
LOC: RAD 13:13
PROVIDERS: PCP Nurse Practitioner Family; Visit Provider Orthopaedic Surgery
DX: M22.42 Chondromalacia patellae, left knee (principal); M13.862 Other specified arthritis, left knee; S83.242A Other tear of medial meniscus, current injury, left knee, initial encounter; X58.XXXA Exposure to other specified factors, initial encounter
CPT/HCPCS: 73721

== ENCOUNTER 2024-12-15 11:17 | Outpatient (RCR) | payer BC, SELFPAY | END 2025-01-04 23:59 | disposition home or self-care (01) | LOC: TPT 11:17 | PROVIDERS: PCP Nurse Practitioner Family; Visit Provider Orthopaedic Surgery | DX: M25.562 Pain in left knee (principal) | CPT/HCPCS: 97110 ==

== ENCOUNTER 2025-01-04 12:35 | Emergency (ER) | payer BC, SELFPAY ==
--- OUTSIDE RECORDS SUMMARY | 2025-01-04 12:44 | XMS_ITS | Clinical Summary ---
Author Organization [facility] Address [address] [place]: Epic Prelude ADT EZEQUIEL HARRISON [id number] Care Team Providers Care Sail Cutter Name Role Phone Unavailable Primary Care Provider Unavailabl e Allergies Active Allergy Reactions Criticality Noted Date Comments Propranolol Bradycardia Medium 07/01/2024 Medications cpap medical staffing coordinator ResMed CPAP @ 9 cwp with heated [...] Encounters Date Type Department Care Team Description 12/23/2024 External Device Data [facility] ABSTRACTION Provider, Abstract 11/26/2024 External Device Data [facility] ABSTRACTION Provider, Abstract 11/18/2024 External Device Data [facility]STRACTION Provider, Abstract 10/21/2024 External Device Data [facility]STRACTION Provider, Abstract 10/14/2024 External Device Data [facility] ABSTRACTION Provider, Abstract from Last 3 Months Family History Medical [...] on file 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
[2025-01-04 12:53] VITALS: BP 185/101; PULSE 85; RESP 18; TEMP 36.8; O2SAT 95; BMI 38.6
--- NOTE | 2025-01-04 13:18 | W.ED.BACK ---
HPI - Back Pain/Injury General: Chief Complaint: Back Pain/Injury Stated Complaint: lower back pain Time Seen by Provider: 01/04/25 12:52 Source: patient Mode of arrival: ambulatory Limitations: no limitations History of Present Illness: Calculus cholecyst patient is a 54-year-old female presents the emergency department complaining of left lower back pain rating down her left leg today. Reports history of sciatica. No direct trauma, no bowel or bladder incontinence, no saddle anesthesia, no fevers, no history of cancer. Pain is worse with ambulation, and when she lifts her left leg it causes severe worsening of pulling sensation in her left lower back. Vital stable at this time, she took ibuprofen but states it has not been touching the pain. MD elicited complaint: back pain Pertinent past history: other (Sciatica) Onset (ago): hour(s) Timing: constant Severity: moderate Similar Symptoms Previously: Yes Quality: burning and sharp Location: left lower back Radiation: left upper leg Exacerbating factors: movement Associated symptoms: Deny abdominal pain, difficulty walking, fecal incontinence, fever(s) or syncope Related Data Home Medications ?Medication ?Instructions ?Recorded ?Confirmed venlafaxine 75 mg tablet 75 mg PO QPM 06/17/19 01/04/25 verapamil 120 mg 24 hr 120 mg PO QPM 06/17/19 01/04/25 capsule,extended release Previous Rx's ?Medication ?Instructions ?Recorded methocarbamol 750 mg tablet 750 mg PO Q8H 5 days #15 tabs 01/04/25 prednisone 10 mg tablets in a dose 10 mg PO DIRECTED #21 ea 01/04/25 pack Allergies Allergy/AdvReac Type Severity Reaction Status Date / Time propranolol (From Inderal [place]) Allergy Unknown Verified 12/15/24 15:10 Review of Systems General: Reports: 10 or more systems reviewed and unremarkable except in HPI and below Const: Reports: other (denies trauma); Denies: fever(s), change in weight or night sweats Card: Denies: chest pain, lightheadedness or syncope Resp: Denies: dyspnea GI: Denies: abdominal pain or fecal incontinence : Denies: urinary incontinence Musc: Reports: back pain and extremity pain (lle); Denies: neck pain Skin/Breast: Denies: rash or skin pain Neuro: Denies: headache(s), numbness in extremities, weakness in extremities, sensory changes, lack of coordination, difficulty walking, frequent falls or involuntary movements PFSH ED PFSH: Medical History Abnormal uterine bleeding (AUB) Thickened endometrium Mitral valve prolapse Factor 5 Leiden mutation, heterozygous Surgical History deliv NOS-unsp Family History Other Colon cancer Denies family history of Ovarian cancer Diabetes Breast cancer Suicide Cancer Hypertension Uterine cancer Thyroid disease Social History Smoking and tobacco/nicotine status: never used tobacco/nicotine Physical Exam Const: COMMON NORMALS: no acute distress, patient oriented x3, no limitations, healthy appearing and alert Resp: COMMON NORMALS: normal respiratory effort, No retractions, No use of accessory muscles and clear to auscultation bilaterally AUSCULTATION: clear to auscultation bilaterally Cardio: COMMON NORMALS: regular rate, regular rhythm, S1 normal heart sound present and S2 normal heart sound present RATE: regular rate RHYTHM: regular rhythm HEART SOUNDS: S1 normal heart sound present and S2 normal heart sound present Back/Pelvis: OTHER: Straight leg raise positive on the left. Normal visual examination. No spinous process tenderness. Reproducible tenderness to palpation to left lower back. Extremity: COMMON NORMALS: normal to inspection and full ROM Neuro: COMMON NORMALS: patient oriented x3, moves all extremities, no focal motor deficits, no sensory deficits noted, deep tendon reflexes 2+ bilaterally and gait normal SENSORIUM/ORIENTATION: Yes alert OTHER: L3, L4, L5, and S1 nerve sensations intact. Normal knee jerk and ankle jerk reflexes. Skin: COMMON NORMALS: no rashes or lesions noted GENERAL SKIN EXAM: no rashes or lesions noted Course Vital Signs: Vital signs: Vital Signs Temperature 98.3 F 01/04/25 12:53 Pulse Rate 85 01/04/25 12:53 Respiratory Rate 18 01/04/25 12:53 Blood Pressure 185/101 01/04/25 12:53 Pulse Oximetry 95 01/04/25 12:53 Oxygen Delivery Me thod Room Air 01/04/25 12:53 MDM - Back Pain/Injury Medical Decision Making Patient presented with atraumatic left back pain rating down to her left leg, this began today. Straight leg raise positive on the left. She has improvement after medications in the emergency department. No concerning red flag back symptoms such as incontinence or saddle anesthesia, suspect this is lumbar sciatica as she did compare the pain to right sided sciatica in the past. Will treat symptoms at home, she will be referred to Ortho/spine and told to return with any new or worsening. Patient does agree with this plan. No radiology studies performed this visit Discharge Plan Discharge Patient Disposition: Home Clinical Impression: Lumbar radiculopathy Condition: Stable Prescriptions: New prednisone 10 mg tablets,dose pack 10 mg PO DIRECTED Qty: 21 0RF Rx Instructions: see taper instructions 6 tablets on day 1, 5 tablets on day 2, 4 tablets on day 3, 3 tablets on day 4, 2 tablets on day 5, and 1 tablet a day 6. P.o. methocarbamol 750 mg tablet 750 mg PO Q8H 5 Days Qty: 15 0RF No Action verapamil 120 mg capsule,ext rel. pellets 24 hr 120 mg PO QPM venlafaxine 75 mg tablet 75 mg PO QPM Discharge Orders: Discharge ED (Routine); Ordered 01/04/25 Ordered By: Trevon Veloz Referrals: Marilee Heath FNP [Primary Care Provider, Family Practice] Patient Instructions: Patient Portal & Mino Instructions Activity Restrictions/Additional Instructions: Discharge Instructions Your Diagnosis You have been diagnosed with left lumbar radiculopathy. This means a nerve in your lower back is being compressed or irritated, causing pain that travels down your left leg. This condition is often caused by a herniated (bulging) disc in your spine. What to Expect The good news is that most people with this condition improve over time without surgery. Many patients notice improvement within 2 to 6 weeks. Your symptoms should gradually get better as the inflammation around the nerve decreases. Your Medications You have been prescribed the following medications: - Methocarbamol (Robaxin): Take as prescribed for 5 days. This muscle relaxant helps reduce muscle spasms. It may cause drowsiness, so avoid driving or operating machinery until you know how it affects you. - Prednisone taper: Take exactly as prescribed. This steroid medication helps reduce inflammation around the nerve. Common side effects include trouble sleeping, nervousness, and increased appetite. Do not stop taking this medication early, even if you feel better. - Ibuprofen: Continue taking as needed for pain. This anti-inflammatory medication can provide short-term relief. Take with food to protect your stomach. Do not exceed the recommended dose. Activity Guidelines - Stay active: Bed rest is not recommended. Continue with your normal daily activities as much as your pain allows. - Avoid activities that worsen your pain: Listen to your body and modify activities that increase your leg pain. - Gentle movement is helpful: Walking and gentle stretching are encouraged as tolerated. - Return to work: You may return to work when you feel able, modifying activities as needed. When to Seek Immediate Medical Attention Go to the emergency room or call 911 if you experience: - Loss of bowel or bladder control - Numbness in the groin or rectal area - Weakness in both legs - Severe or rapidly worsening leg weakness Follow-Up Care - You will be referred to an orthopedic or client specialist for further evaluation and management. - If your symptoms do not improve within 4 to 6 weeks, imaging studies may be recommended. - Physical therapy may be beneficial if your recovery is slow. Questions or Concerns If you have questions about your medications or if your symptoms worsen, contact your primary care physician. Print Language: Chinese Coding Level of Care Code ED Digital Performance Analyst for Remi Joseph
[2025-01-04] MEDS: HYDROcodone-acetaminophen 7.5-325 mg Tablet 1 TAB PO (13:22)
[2025-01-04] MEDS: orphenadrine 30 mg/mL Inj 2 mL 60 MG IM (13:23)
--- NOTE | 2025-01-05 12:47 | DCPLANNER ---
messaged ortho for er f/u
== END 2025-01-04 14:11 | disposition home or self-care (01) ==
PROVIDERS: Emergency Provider Physician Assistant; PCP Nurse Practitioner Family
DX: M54.16 Radiculopathy, lumbar region (principal)
CPT/HCPCS: 96372; 99284; J1100; J1885; J2360; J9999